=== PATIENT | male | born 1950 | race Caucasian/White ===

== ENCOUNTER 2016-10-23 00:48 | Emergency (ER) | payer MEDICAID ==
[2016-10-23] MEDS ORDERED: PROPARACAINE 0.5% OPHTH DROPS 15 ML ONE (00:56)
== END 2016-10-23 01:47 | disposition home or self-care (01) ==
DX: H57.12 Ocular pain, left eye (principal); G89.18 Other acute postprocedural pain; H35.30 Unspecified macular degeneration; I10 Essential (primary) hypertension; F17.200 Nicotine dependence, unspecified, uncomplicated
CPT/HCPCS: 99283; J3490

== ENCOUNTER 2017-02-14 09:27 | Outpatient (CLI) | payer MEDICAID | END 2017-02-14 09:28 | DX: Z79.899 Other long term (current) drug therapy (principal) ==

== ENCOUNTER 2018-07-21 12:47 | Emergency (ER) | payer MEDICAID, MEDICARE ==
[2018-07-21] MEDS ORDERED: ALBUTEROL NEB 2.5 MG/3 ML INH STA ×2 (13:29→14:43)
[2018-07-21] MEDS ORDERED: DEXAMETHASONE 10 MG/ML VIAL PO STA (13:29)
--- NOTE | 2018-07-21 13:33 | ED Physician Documentation ---
History of Present Illness - Stated complaint Stated Complaint: SOA - Chief complaint Chief Complaint: Resp - Additonal information Additional information: hx from pt 67 male smoker no hx COPD asthma sick since yesterday cough soa mylagias no NVD no leg swelling no travel or sick contacts Review of Systems Constitutional: reports: Myalgias. denies: Fever Cardiac: denies: Chest pain / pressure Respiratory: reports: Dyspnea, Cough GI: denies: Vomiting, Diarrhea Musculoskeletal: denies: Extremity swelling Endocrine: denies: Easy bruising / bleeding Immunocompromised: denies: Immunocompromised PD PAST MEDICAL HISTORY - Past Medical History Past Medical History: No Cardiovascular: Hypertension Respiratory: Pneumonia Neuro: None Endocrine/Autoimmune: None GI: None : None HEENT: None Psych: Depression, Anxiety, Post traumatic stress disorder Musculoskeletal: None Derm: None - Past Surgical History Past Surgical History: Yes - Present Medications Home Medications: Ambulatory Orders Medication Instructions Recorded Confirmed Lisinopril 10 mg PO HS 10/13/13 06/14/15 PARoxetine [Paxil] 40 mg PO HS 10/13/13 06/14/15 Prazosin [Minipress] 1 mg PO DAILY 10/13/13 06/14/15 Propranolol ER [Inderal LA] 80 mg PO HS 10/13/13 06/14/15 traZODone [Desyrel] 100 mg PO HS 10/13/13 06/14/15 Albuterol Sulfate [Proair Hfa 2 puffs INH Q4H PRN #1 inhaler 07/21/18 Inhaler] Azithromycin [Zithromax] 250 mg PO DAILY #4 tablet 07/21/18 predniSONE [Deltasone] 60 mg PO DAILY 5 Days tablet 07/21/18 - Allergies Allergies/Adverse Reactions: Allergies Allergy/AdvReac Type Severity Reaction Status Date / Time No Known Drug Allergies Allergy Unverified 10/13/13 12:13 - Social History Does the pt smoke?: Yes Smoking Status: Current every day smoker Does the pt drink ETOH?: No Does the pt have substance abuse?: No - Immunizations Immunizations are current?: Yes - POLST Patient has POLST: No PD ED PE NORMAL - Vitals Vital signs reviewed: Yes - Neck Neck: Supple, no meningeal sign - Cardiac Cardiac: RRR - Respiratory Respiratory: No respiratory distress, Other (wheezing gregorio, ronchi L). No: Clear bilaterally - Extremities Extremities: No tenderness to palpate, Normal ROM s pain, No edema, No calf tenderness / cord - Neuro Neuro: Alert and oriented X 3 Results - Vitals Vitals: Vital Signs - 24 hr 07/21/18 13:08 Temperature 36.7 C Heart Rate 63 Respiratory 20 Rate Blood Pressure 146/82 H O2 Saturation 92 Oxygen O2 Source Room air - Rads (name of study) CXR Radiology: See rad report ([facility]) PD MEDICAL DECISION MAKING - ED course ED course: after steroids and neb tx much better, moving air, sats improved no pna neg influenza but older smoker with bronchitis - will rx zmax - Sepsis Event Vital Signs: Vital Signs - 24 hr 07/21/18 13:08 Temperature 36.7 C Heart Rate 63 Respiratory 20 Rate Blood Pressure 146/82 H O2 Saturation 92 Oxygen O2 Source Room air Departure - Departure Disposition: 01 Home, Self Care Clinical Impression: Bronchitis, Wheezing Condition: Good Instructions: Bronchitis Acute Dc, Inhaler W Spacer Follow-Up: Pratibha Galo ARNP [Primary Care Provider] - (for a recheck this week ) Prescriptions: Albuterol Sulfate [Proair Hfa Inhaler] 2 puffs INH Q4H PRN #1 inhaler PRN Reason: Shortness Of Air/Wheezing Azithromycin [Zithromax] 250 mg PO DAILY #4 tablet predniSONE [Deltasone] 60 mg PO DAILY 5 Days tablet Comments: The xray does not show pneumonia and the flu swabs were negative You have bronchitis Bronchitis is often viral but because you are a smoker your are more prone to bacterial infections so we have started you on zithromax (next dose tomorrow) Also steroids to decrease airway swelling (next dose tomorrow) And an inhaler to be used every 4 hr for the next three days then as needed (next dose 7 PM) Follow up with your regular doctor But return to the ER if worse
--- NOTE | 2018-07-21 14:26 | XRAY Report ---
Reason: diff breathing Procedure Date: 07/21/2018 Accession Number: [id number] / [id number] Procedure: XR - Chest 2 View X-Ray CPT Code: 46968 FULL RESULT: EXAM: CHEST RADIOGRAPHY EXAM DATE: 07/21/2018 02:11 PM. CLINICAL HISTORY: Difficulty breathing. COMPARISON: None. TECHNIQUE: 2 views. FINDINGS: Lungs/Pleura: No focal opacities evident. No pleural effusion. No pneumothorax. Normal volumes. Mediastinum: Heart and mediastinal contours are unremarkable. Other: None. IMPRESSION: Normal 2-view chest radiography. RADIA
[2018-07-21] MEDS ORDERED: AZITHROMYCIN 250 MG TABLET PO STA (14:43)
[2018-07-21 15:58] VITALS: BP 130/85
== END 2018-07-21 15:59 | disposition home or self-care (01) ==
LOC: ED 12:47
DX: J40 Bronchitis, not specified as acute or chronic (principal); F17.200 Nicotine dependence, unspecified, uncomplicated; I10 Essential (primary) hypertension
CPT/HCPCS: 71046; 87275; 87276; 94640; 94664; 99283; A9270

== ENCOUNTER 2018-08-12 15:52 | Emergency (ER) | payer MEDICARE ==
[2018-08-12 16:02] VITALS: BP 156/125
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
[2018-08-12] MEDS ORDERED: ACETAMINOPHEN 325 MG TABLET PO STA (17:11)
[2018-08-12] MEDS ORDERED: NAPROXEN 250 MG TABLET PO STA (17:11)
[2018-08-12] MEDS ORDERED: METHOCARBAMOL 500 MG TABLET PO STA (17:11)
== END 2018-08-12 17:26 | disposition home or self-care (01) ==
LOC: ED 15:52
DX: I10 Essential (primary) hypertension (principal); F17.200 Nicotine dependence, unspecified, uncomplicated; S16.1XXA Strain of muscle, fascia and tendon at neck level, initial encounter; Y08.89XA Assault by other specified means, initial encounter; Y93.89 Activity, other specified
CPT/HCPCS: 99283; A9270

== ENCOUNTER 2018-10-20 08:00 | Outpatient (CLI) | payer MEDICARE ==
[2018-10-20 14:11] LABS: BASOPHILS # (AUTO) 0.1 10^3/uL (0.0-0.1); BASOPHILS % (AUTO) 1.5 %; EOSINOPHILS # (AUTO) 0.4 10^3/uL (0.0-0.7); EOSINOPHILS % (AUTO) 4.8 %; HGB - HEMOGLOBIN 14.2 g/dL (14.0-18.0); LYMPHOCYTES # (AUTO) 2.3 10^3/uL (1.5-3.5); LYMPHOCYTES % (AUTO) 29.4 %; MEAN CORPUSCULAR HEMOGLOBIN 33.1 pg (27.0-31.0); MEAN CORPUSCULAR HGB CONC 34.2 g/dL (32.0-36.0); MEAN CORPUSCULAR VOLUME 96.8 fL (80.0-94.0); MEAN PLATELET VOLUME 8.9 fL (7.4-11.4); MONOCYTES # (AUTO) 0.6 10^3/uL (0.0-1.0); MONOCYTES % (AUTO) 7.6 %; NEUTROPHILS # (AUTO) 4.5 10^3/uL (1.5-6.6); NEUTROPHILS % (AUTO) 56.7 %; PLT - PLATELET COUNT 302 10^3/uL (130-450); RED BLOOD COUNT 4.28 10^6/uL (4.70-6.10); RED CELL DISTRIBUTION WIDTH 13.8 % (12.0-15.0); WHITE BLOOD COUNT 7.9 x10^3/uL (4.8-10.8)
[2018-10-20 14:30] LABS: ALBUMIN 4.3 g/dL (3.2-5.5); ALBUMIN/GLOBULIN RATIO 1.8 (1.0-2.2); ALKALINE PHOSPHATASE 53 IU/L (42-121); ALT ALANINE AMINOTRANSFERASE 36 IU/L (10-60); AST ASPARTATE AMINOTRANSFERASE 20 IU/L (10-42); BILIRUBIN,TOTAL 0.6 mg/dL (0.2-1.0); BUN - BLOOD UREA NITROGEN 9 mg/dL (6-20); CALCIUM 9.3 mg/dL (8.5-10.3); CARBON DIOXIDE - CO2 27 mmol/L (21-32); CHLORIDE 104 mmol/L (101-111); CHOL/HDL RATIO 4.8 (<5.0); CHOLESTEROL 258 mg/dL; CREATININE 0.9 mg/dL (0.6-1.2); GFR - MDRD 84 (>89); GLUCOSE 97 mg/dL (70-100); HDL CHOLESTEROL 54 mg/dL; LDL CHOLESTEROL,CALCULATED 175 mg/dL; LDL/HDL RATIO 3.2 (<3.6); SODIUM 138 mmol/L (135-145); TOTAL PROTEIN 6.7 g/dL (6.7-8.2); VLDL CHOLESTEROL 29 mg/dL
== END 2018-10-20 23:59 | disposition home or self-care (01) ==
LOC: LAB.N 08:00
PROVIDERS: ATTEND Nurse Practitioner Gerontology
DX: I10 Essential (primary) hypertension (principal); E78.5 Hyperlipidemia, unspecified; Z79.899 Other long term (current) drug therapy
CPT/HCPCS: 36415; 80053; 80061; 83721; 85025

== ENCOUNTER 2019-08-28 17:15 | Outpatient (CLI) | payer MEDICARE | END 2019-08-28 17:16 | disposition critical access hospital (66) | LOC: EMS 17:15 | PROVIDERS: ATTEND Surgery | DX: R45.89 Other symptoms and signs involving emotional state (principal) | CPT/HCPCS: A0425; A0429 ==

== ENCOUNTER 2019-08-28 17:37 | Emergency (ER) | payer MEDICARE ==
[2019-08-28 18:34] VITALS: BP 237/142
[2019-08-28] MEDS ORDERED: LORazepam 2 MG/ML VIAL IVP STA (18:43)
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
[2019-08-28] MEDS ORDERED: LORazepam 1 MG TABLET PO STA (18:47)
== END 2019-08-28 19:12 | disposition home or self-care (01) ==
LOC: EDUNIT# → ED 17:37
DX: F33.1 Major depressive disorder, recurrent, moderate (principal); F41.9 Anxiety disorder, unspecified; F43.10 Post-traumatic stress disorder, unspecified; I10 Essential (primary) hypertension; F17.200 Nicotine dependence, unspecified, uncomplicated
CPT/HCPCS: 99283; J8499

== ENCOUNTER 2019-09-23 23:26 | Emergency (ER) | payer MEDICARE ==
--- NOTE | 2019-09-24 | ED Physician Documentation ---
History of Present Illness - Stated complaint Stated Complaint: SOA/ANXIETY - Chief complaint Chief Complaint: MHE - Additonal information Additional information: This is a 69-year-old male with a history of depression, anxiety, COPD who pre sents with shortness of breath. Patient has had a cough productive of a small amount of clear to white sputum for Around 1 week, and this has increased over the last several days. He typically is prescribed an albuterol inhaler, but he ran out of this. He states that as his breathing has gotten a bit worse and this has increased his anxiety. He denies any chest pain, leg swelling, or fever. He denies any history of KS or cardiac problems. Review of Systems Constitutional: denies: Fever Nose: denies: Rhinorrhea / runny nose Cardiac: denies: Chest pain / pressure Respiratory: reports: Dyspnea, Cough PD PAST MEDICAL HISTORY - Past Medical History Cardiovascular: Hypertension Respiratory: Pneumonia Neuro: None Endocrine/Autoimmune: None GI: None : None HEENT: None Psych: Depression, Anxiety, Post traumatic stress disorder Musculoskeletal: None Derm: None - Past Surgical History Past Surgical History: Yes - Present Medications Home Medications: Ambulatory Orders Medication Instructions Recorded Confirmed Lisinopril 10 mg PO HS 10/13/13 06/14/15 PARoxetine [Paxil] 40 mg PO HS 10/13/13 06/14/15 Prazosin [Minipress] 1 mg PO DAILY 10/13/13 06/14/15 Propranolol ER [Inderal LA] 80 mg PO HS 10/13/13 06/14/15 traZODone [Desyrel] 100 mg PO HS 10/13/13 06/14/15 Albuterol Sulfate [Proair Hfa 2 puffs INH Q4H PRN #1 inhaler 07/21/18 Inhaler] Azithromycin [Zithromax] 250 mg PO DAILY #4 tablet 07/21/18 predniSONE [Deltasone] 60 mg PO DAILY 5 Days tablet 07/21/18 Methocarbamol [Robaxin] 500 mg PO Q6H PRN #25 tablet 08/12/18 Naproxen [Naprosyn] 500 mg PO BID PRN #20 tablet 08/12/18 Lorazepam [Ativan] 1 mg PO TID PRN #10 tablet 08/28/19 Albuterol Sulf [Ventolin Hfa 1 - 2 puffs INH Q4HR PRN #1 inhaler 09/24/19 Inhaler] Azithromycin [Zithromax] 0 mg PO DAILY #6 tablet 09/24/19 Benzonatate [Tessalon Perle] 100 - 200 mg PO TID PRN #30 capsule 09/24/19 predniSONE [Prednisone] 40 mg PO DAILY #10 tablet 09/24/19 - Allergies Allergies/Adverse Reactions: Allergies Allergy/AdvReac Type Severity Reaction Status Date / Time No Known Drug Allergies Allergy Verified 09/23/19 23:38 - Social History Does the pt smoke?: Yes Smoking Status: Current every day smoker Does the pt drink ETOH?: No Does the pt have substance abuse?: No - Immunizations Immunizations are current?: Yes - POLST Patient has POLST: No PD ED PE NORMAL - Vitals Vital signs reviewed: Yes - General General: Alert and oriented X 3, No acute distress - HEENT HEENT: PERRL - Neck Neck: Supple, no meningeal sign - Cardiac Cardiac: RRR, No murmur - Respiratory Respiratory: Other (Diffuse expiratory wheezes, no crackles.) - Abdomen Abdomen: Soft, Non distended - Derm Derm: Warm and dry - Extremities Extremities: No deformity, No edema - Neuro Neuro: Alert and oriented X 3 - Psych Psych: Normal mood, Normal affect Results - Vitals Vitals: Vital Signs - 24 hr 09/23/19 09/24/19 09/24/19 23:38 00:29 00:53 Temperature 36.5 C Heart Rate 68 60 61 Respiratory 18 18 13 Rate Blood Pressure 200/100 H 179/112 H O2 Saturation 97 94 09/24/19 09/24/19 09/24/19 02:00 02:20 03:05 Temperature 37.2 C Heart Rate 65 61 68 Respiratory 16 18 16 Rate Blood Pressure 153/100 H 153/100 H 194/94 H O2 Saturation 97 95 96 Oxygen O2 Source Room air - EKG (time done) 00:15 Other comments: Other comments (Rate 62, rhythm sinus, there is no ST segment elevation Or depression. There is T wave flattening in aVL. Intervals within normal limits.) - Rads (name of study) Chest XR Radiology: Other (Hyperinflated lungs without acute cardiopulmonary abnormality) PD MEDICAL DECISION MAKING - ED course Complexity details: considered differential (COPD, pneumonia, bronchitis, pneumothorax, dysrhythmia, ACS, anxiety) ED course: On arrival patient is hypertensive, nontoxic-appearing, he does have some diffuse mild end-expiratory wheezes. Patient has no chest pain, and given the gradual progression of his shortness of breath as well as his his cough, ACS is unlikely, EKG shows no convincing signs of ischemia or dysrhythmia. Chest x-ray was obtained which shows hyperinflated lungs consistent with COPD, no signs of pneumonia or pneumothorax. Patient was given a dose of steroids, and a DuoNeb treatment. On repeat examination he is feeling improved, and his wheezing is also improved. He appears to have a COPD exacerbation likely the setting of an upper respiratory infection. Given that he has had change in sputum, we will treat with a steroid burst, azithromycin. I also prescribed him Tessalon Perles for cough. I recommend that he quit smoking, that he follow with his primary care provider closely. He was given 1 dose of lorazepam in the emergency department, but explained to him that I would not want to write a prescription for this, the given its addictive potential. I think there are much better medications to help him with his anxiety, and recommend a follow-up with his primary care provider regarding his anxiety. Patient agreed to this plan and was discharged in good condition Departure - Departure Disposition: 01 Home, Self Care Clinical Impression: COPD (chronic obstructive pulmonary disease) Qualifiers: COPD type: unspecified COPD Qualified Code(s): J44.9 - Chronic obstructive pulmonary disease, unspecified Condition: Good Instructions: ED COPD Flare Follow-Up: Shawn Scott MD [Primary Care Provider] - Within 1 week Prescriptions: Albuterol Sulf [Ventolin Hfa Inhaler] 1 - 2 puffs INH Q4HR PRN #1 inhaler PRN Reason: Shortness Of Air/Wheezing Azithromycin [Zithromax] 0 mg PO DAILY #6 tablet Benzonatate [Tessalon Perle] 100 - 200 mg PO TID PRN #30 capsule PRN Reason: Cough predniSONE [Prednisone] 40 mg PO DAILY #10 tablet Comments: You appear to have a COPD exacerbation. Please use the albuterol inhaler as needed, also take the steroid and antibiotic that I have prescribed. If you are having worsening symptoms such as pain in your chest, worsening shortness of breath or shortness of breath that does not respond to this treatment, coughing up blood, or any other concerning symptoms return to the emergency department. Please follow-up with your primary care provider in the next week to follow up on your symptoms. To help you with your breathing and to help preserve your lung function, please quit smoking. Discharge Date/Time: 09/24/19 03:11
[2019-09-24] MEDS: IPRATROPIUM/ALBUTEROL 3 ML NEB INH STA (00:29)
[2019-09-24] MEDS: predniSONE 20 MG TABLET PO STA (01:10)
--- NOTE | 2019-09-24 01:26 | XRAY Report ---
Reason: Cough, shortness of breath Procedure Date: 09/24/2019 Accession Number: [id number] / [id number] Procedure: XR - Chest 2 View X-Ray CPT Code: 97284 Final Report FULL RESULT: EXAM: CHEST RADIOGRAPHY EXAM DATE: 09/24/2019 01:06 AM. CLINICAL HISTORY: Cough, shortness of breath. COMPARISON: CHEST 2 VIEW 07/21/2018 2:01 PM. TECHNIQUE: 2 views. FINDINGS: Lungs/Pleura: The lungs are hyperinflated with relative flattening of the hemidiaphragms. No acute infiltrates. No pleural effusions. Mediastinum: Heart and mediastinal contours are unremarkable. Other: None. IMPRESSION: Hyperinflated lungs. No acute infiltrates. RADIA
[2019-09-24] MEDS: LORazepam 1 MG TABLET PO STA (02:29)
[2019-09-24 03:11] VITALS: BP 194/94
== END 2019-09-24 03:11 | disposition home or self-care (01) ==
LOC: ED 23:26
DX: J44.9 Chronic obstructive pulmonary disease, unspecified (principal); I10 Essential (primary) hypertension; F17.200 Nicotine dependence, unspecified, uncomplicated
CPT/HCPCS: 71046; 93005; 94640; 94664; 99284; J7512; J8499

== ENCOUNTER 2020-10-25 05:57 | Outpatient (CLI) | payer MEDICARE | END 2020-10-25 05:58 | disposition critical access hospital (66) | LOC: EMS 05:57 | PROVIDERS: ATTEND Surgery | DX: R45.851 Suicidal ideations (principal) | CPT/HCPCS: A0425; A0429 ==

== ENCOUNTER 2020-10-25 06:16 | Emergency (ER) | payer MEDICARE ==
[2020-10-25] MEDS ORDERED: LORazepam 1 MG TABLET PO STA (06:30)
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
[2020-10-25 06:43] LABS: BASOPHILS # (AUTO) 0.1 10^3/uL (0.0-0.1); BASOPHILS % (AUTO) 1.6 %; EOSINOPHILS # (AUTO) 0.4 10^3/uL (0.0-0.7); EOSINOPHILS % (AUTO) 4.4 %; HCT - HEMATOCRIT 46.9 % (42.0-52.0); HGB - HEMOGLOBIN 15.6 g/dL (14.0-18.0); LYMPHOCYTES # (AUTO) 2.4 10^3/uL (1.5-3.5); LYMPHOCYTES % (AUTO) 29.7 %; MEAN CORPUSCULAR HEMOGLOBIN 31.5 pg (27.0-31.0); MEAN CORPUSCULAR HGB CONC 33.3 g/dL (32.0-36.0); MEAN CORPUSCULAR VOLUME 94.7 fL (80.0-94.0); MEAN PLATELET VOLUME 9.9 fL (7.4-11.4); MONOCYTES # (AUTO) 0.6 10^3/uL (0.0-1.0); MONOCYTES % (AUTO) 7.9 %; NEUTROPHILS # (AUTO) 4.5 10^3/uL (1.5-6.6); NEUTROPHILS % (AUTO) 56.1 %; PLT - PLATELET COUNT 251 10^3/uL (130-450); RED BLOOD COUNT 4.95 10^6/uL (4.70-6.10); WHITE BLOOD COUNT 7.9 x10^3/uL (4.8-10.8)
[2020-10-25 06:57] LABS: ACETAMINOPHEN < 10 ug/mL (10-30); ALBUMIN 4.1 g/dL (3.2-5.5); ALBUMIN/GLOBULIN RATIO 1.5 (1.0-2.2); ALKALINE PHOSPHATASE 65 IU/L (42-121); ALT ALANINE AMINOTRANSFERASE 25 IU/L (10-60); AST ASPARTATE AMINOTRANSFERASE 18 IU/L (10-42); BILIRUBIN,TOTAL 0.8 mg/dL (0.2-1.0); BUN - BLOOD UREA NITROGEN 10 mg/dL (6-20); CALCIUM 9.2 mg/dL (8.5-10.3); CARBON DIOXIDE - CO2 27 mmol/L (21-32); CHLORIDE 106 mmol/L (101-111); CREATININE 1.2 mg/dL (0.6-1.2); ETOH - ETHANOL < 5.0 mg/dL; GFR - MDRD 60 (>89); GLUCOSE 125 mg/dL (70-100); LIPASE 34 U/L (22-51); POTASSIUM 3.7 mmol/L (3.5-5.0); SALICYLATE < 6.0 mg/dL; SODIUM 141 mmol/L (135-145); TOTAL PROTEIN 6.8 g/dL (6.7-8.2)
[2020-10-25 08:04] LABS: MUDS CUTOFF CONCENTRATIONS CUTOFF CONC BELOW:
[2020-10-25 08:07] LABS: BILIRUBIN,URINE NEGATIVE (NEGATIVE); GLUCOSE, URINE (UA) NEGATIVE (NEGATIVE); KETONES,URINE (UA) NEGATIVE (NEGATIVE); LEUKOCYTE ESTERASE, URINE NEGATIVE (NEGATIVE); NITRITE,URINE NEGATIVE (NEGATIVE); OCCULT BLOOD,URINE NEGATIVE (NEGATIVE); PROTEIN,URINE NEGATIVE (NEGATIVE); UROBILINOGEN,URINE 0.2 (NORMAL) E.U./dL (NORMAL)
[2020-10-25 08:08] LABS: CLARITY,URINE CLEAR (CLEAR)
[2020-10-25 08:22] LABS: AMPHETAMINE SCREEN,URINE NEGATIVE (NEGATIVE); BARBITURATE SCREEN,UR NEGATIVE (NEGATIVE); BENZODIAZEPINES SCREEN, URINE NEGATIVE (NEGATIVE); COCAINE SCREEN URINE NEGATIVE (NEGATIVE); METHADONE SCREEN, URINE NEGATIVE (NEGATIVE); METHAMPHETAMINES SCREEN, URINE NEGATIVE (NEGATIVE); OPIATE SCREEN, URINE NEGATIVE (NEGATIVE); OXYCODONE SCREEN, URINE NEGATIVE (NEGATIVE); PROPOXYPHENE SCREEN, URINE NEGATIVE (NEGATIVE); THC CANNABINOID SCREEN, URINE NEGATIVE (NEGATIVE); TRICYCLIC ANTIDEPRESSANT,URINE NEGATIVE (NEGATIVE)
[2020-10-25 08:51] LABS: B. PARAPERTUSSIS- RESP PCR PAN NOT DETECTED; B. PERTUSSIS- RESP PCR PANEL NOT DETECTED; C. PNEUMONIAE- RESP PCR PANEL NOT DETECTED; CORONAVIRUS 229E-RESP PCR NOT DETECTED; CORONAVIRUS HKU1-RESP PCR NOT DETECTED; CORONAVIRUS NL63-RESP PCR NOT DETECTED; CORONAVIRUS OC43-RESP PCR NOT DETECTED; HUMAN METAPNEUMOVIRUS NOT DETECTED; INFLUENZA A- RESP PCR PANEL NOT DETECTED; INFLUENZA B - RESP PCR PANEL NOT DETECTED; M. PNEUMONIAE- RESP PCR PANEL NOT DETECTED; PARAINFLUENZA VIRUS 1 NOT DETECTED; PARAINFLUENZA VIRUS 2 NOT DETECTED; PARAINFLUENZA VIRUS 3 NOT DETECTED; PARAINFLUENZA VIRUS 4 NOT DETECTED; RHINOVIRUS/ENTEROVIRUS NOT DETECTED; RSV- RESP PCR PANEL NOT DETECTED; SARS-CoV-2 -RESP PCR PANEL NOT DETECTED
[2020-10-25] MEDS ORDERED: NICOTINE 21 MG PATCH TOP STA (11:28)
[2020-10-25 12:33] VITALS: BP 171/97
== END 2020-10-25 12:49 | disposition home or self-care (01) ==
LOC: EDBD → EDUNIT# → ED 06:16
DX: R45.851 Suicidal ideations (principal); F32.9 Major depressive disorder, single episode, unspecified; F17.200 Nicotine dependence, unspecified, uncomplicated; Z20.822 Contact with and (suspected) exposure to COVID-19
CPT/HCPCS: 36415; 80053; 81003; 83690; 84443; 85025; 87631; 99283; 99284; A9270; J8499; 0202U; 80306; 80307; 80320; 80329; 81001; 87086

== ENCOUNTER 2021-01-20 01:57 | Outpatient (CLI) | payer MEDICARE, MEDICAID | END 2021-01-20 01:58 | disposition critical access hospital (66) | LOC: EMS 01:57 | DX: R45.851 Suicidal ideations (principal) | CPT/HCPCS: A0425; A0429 ==

== ENCOUNTER 2021-01-20 02:17 | Emergency (ER) | payer MEDICARE, MEDICAID ==
--- NOTE | 2021-01-20 02:52 | ED Physician Documentation ---
History of Present Illness - Stated complaint Stated Complaint: MHE, SI - Chief complaint Chief Complaint: MHE - History obtained from History obtained from: Patient - Additonal information Additional information: Patient comes emergency department chief complaint of "I just do not see any reason to go on". Patient has a longstanding history of depression and has previously had inpatient stays for suicidal attempt with pills, though he does note that this was about 8 years ago. He states that his most recent trigger is that he feels as though his health is failing. He had an episode 1 week ago where he cannot remember the names of any of the members of the group that he has been part of for years. He states that he knows the members well and while he seemed to be able to remember everything else he could not remember anybody's name. Patient states when he got home, he cannot remember his pets names. Patient states that he did not have any focal neurologic deficits otherwise. He states the symptoms began to improve about 3 days later. Patient states that the other and most prominent trigger is the loss of his eyesight. Patient states he had a retinal hemorrhage and has been getting some sort of intraocular injection at the eye clinic for this. This would improve his vision, but he feels that actually, his vision has gotten even worse. Patient denies recent illness. He states he took his Ativan as directed tonight, but did not Take any other medication. He states that although he has felt suicidal, and knows how he would commit suicide if he were to do so, he has not actually attempted suicide anytime recently. He is currently on bupropion, trazodone, and Ativan as needed. He is seen occasionally at the behavioral health clinic [facility]. Review of Systems Ten Systems: 10 systems reviewed and negative Constitutional: reports: Reviewed and negative Eyes: reports: Reviewed and negative Ears: reports: Reviewed and negative Nose: reports: Reviewed and negative Throat: reports: Reviewed and negative Cardiac: reports: Reviewed and negative Respiratory: reports: Reviewed and negative GI: reports: Reviewed and negative : reports: Reviewed and negative Skin: reports: Reviewed and negative Musculoskeletal: reports: Reviewed and negative Neurologic: reports: Reviewed and negative Psychiatric: reports: Depressed, Suicidal. denies: Hallucinations, Delusions Endocrine: reports: Reviewed and negative Immunocompromised: reports: Reviewed and negative PD PAST MEDICAL HISTORY - Past Medical History Past Medical History: Yes Cardiovascular: Hypertension Respiratory: Pneumonia Neuro: None Endocrine/Autoimmune: None GI: None : None HEENT: None Psych: Depression, Anxiety, Post traumatic stress disorder Musculoskeletal: None Derm: None - Past Surgical History Past Surgical History: Yes - Present Medications Home Medications: Ambulatory Orders Medication Instructions Recorded Confirmed Propranolol ER [Inderal LA] 80 mg PO HS 10/13/13 01/20/21 traZODone [Desyrel] 100 mg PO HS 10/13/13 01/20/21 Lorazepam [Ativan] 1 mg PO TID PRN #10 tablet 08/28/19 01/20/21 Atorvastatin [Lipitor] 10 mg PO DAILY 10/25/20 01/20/21 Tamsulosin [Flomax] 0.4 mg PO DAILY 10/25/20 01/20/21 buPROPion [Wellbutrin Xl] 150 mg PO BID 01/20/21 01/20/21 - Allergies Allergies/Adverse Reactions: Allergies Allergy/AdvReac Type Severity Reaction Status Date / Time No Known Drug Allergies Allergy Verified 10/25/20 12:01 - Social History Does the pt smoke?: Yes Smoking Status: Current every day smoker Does the pt drink ETOH?: No Does the pt have substance abuse?: No - Immunizations Immunizations are current?: Yes - POLST Patient has POLST: No PD ED PE NORMAL - Vitals Vital signs reviewed: Yes - General General: Alert and oriented X 3, No acute distress, Well developed/nourished - HEENT HEENT: Atraumatic, PERRL, EOMI, Moist mucous membranes - Neck Neck: Supple, no meningeal sign - Cardiac Cardiac: RRR, No murmur, Strong equal pulses - Respiratory Respiratory: No respiratory distress, Clear bilaterally - Abdomen Abdomen: Soft, Non tender, Non distended - Derm Derm: Normal color, Warm and dry, No rash - Extremities Extremities: No deformity, No edema, No calf tenderness / cord - Neuro Neuro: Alert and oriented X 3 - Psych Psych: Normal mood, Normal affect Results - Vitals Vitals: Oxygen O2 Source Room air - Labs Labs: Laboratory Tests 01/20/21 01/20/21 01/20/21 03:00 03:00 03:00 WBC 8.2 RBC 4.66 L Hgb 14.8 Hct 43.9 MCV 94.2 H MCH 31.8 H MCHC 33.7 RDW 12.5 Plt Count 245 MPV 9.9 Neut # (Auto) 4.4 Lymph # (Auto) 2.4 Lyon # (Auto) 0.8 Eos # (Auto) 0.5 Baso # (Auto) 0.1 Absolute Nucleated RBC 0.00 Nucleated RBC % 0.0 Sodium 140 Potassium 3.9 Chloride 108 Carbon Dioxide 25 Anion Gap 7.0 BUN 19 Creatinine 1.2 Estimated GFR (MDRD) 60 L Glucose 108 H Calcium 8.8 Total Bilirubin 0.5 AST 19 ALT 21 Alkaline Phosphatase 60 Total Protein 6.5 L Albumin 3.9 Globulin 2.6 Albumin/Globulin Ratio 1.5 Lipase 60 H Urine Color Urine Clarity Urine pH Ur Specific [place] Urine Protein Urine Glucose (UA) Urine Ketones Urine Occult Blood Urine Nitrite Urine Bilirubin Urine Urobilinogen Ur Leukocyte Esterase Ur Microscopic Review Urine Culture Comments Nasal Adenovirus (PCR) NOT DETECTED Nasal B. parapertussis DNA (PCR) NOT DETECTED Nasal Coronavir 229E PCR NOT DETECTED Nasal Coronavir HKU1 PCR NOT DETECTED Nasal Coronavir NL63 PCR NOT DETECTED Nasal Coronavir OC43 PCR NOT DETECTED Nasal Enterovir/Rhinovir PCR NOT DETECTED Nasal Influenza B PCR NOT DETECTED Nasal Influenza A PCR NOT DETECTED Nasal Parainfluen 1 PCR NOT DETECTED Nasal Parainfluen 2 PCR NOT DETECTED Nasal Parainfluen 3 PCR NOT DETECTED Nasal Parainfluen 4 PCR NOT DETECTED Nasal RSV (PCR) NOT DETECTED Nasal B.pertussis DNA PCR NOT DETECTED Nasal C.pneumoniae (PCR) NOT DETECTED Nakul Human Metapneumo PCR NOT DETECTED Nasal M.pneumoniae (PCR) NOT DETECTED Nasal SARS-CoV-2 (PCR) NOT DETECTED Urine Opiates Screen Ur Oxycodone Screen Urine Methadone Screen Ur Propoxyphene Screen Ur Barbiturates Screen Ur Tricyclics Screen Ur Phencyclidine Scrn Ur Amphetamine Screen U Methamphetamines Scrn U Benzodiazepines Scrn Urine Cocaine Screen U Cannabinoids Screen Ethyl Alcohol < 5.0 01/20/21 04:45 WBC RBC Hgb Hct MCV MCH MCHC RDW Plt Count MPV Neut # (Auto) Lymph # (Auto) Lyon # (Auto) Eos # (Auto) Baso # (Auto) Absolute Nucleated RBC Nucleated RBC % Sodium Potassium Chloride Carbon Dioxide Anion Gap BUN Creatinine Estimated GFR (MDRD) Glucose Calcium Total Bilirubin AST ALT Alkaline Phosphatase Total Protein Albumin Globulin Albumin/Globulin Ratio Lipase Urine Color YELLOW Urine Clarity CLEAR Urine pH 6.0 Ur Specific [place] 1.020 Urine Protein NEGATIVE Urine Glucose (UA) NEGATIVE Urine Ketones NEGATIVE Urine Occult Blood NEGATIVE Urine Nitrite NEGATIVE Urine Bilirubin NEGATIVE Urine Urobilinogen 0.2 (NORMAL) Ur Leukocyte Esterase NEGATIVE Ur Microscopic Review NOT INDICATED Urine Culture Comments NOT INDICATED Nasal Adenovirus (PCR) Nasal B. parapertussis DNA (PCR) Nasal Coronavir 229E PCR Nasal Coronavir HKU1 PCR Nasal Coronavir NL63 PCR Nasal Coronavir OC43 PCR Nasal Enterovir/Rhinovir PCR Nasal Influenza B PCR Nasal Influenza A PCR Nasal Parainfluen 1 PCR Nasal Parainfluen 2 PCR Nasal Parainfluen 3 PCR Nasal Parainfluen 4 PCR Nasal RSV (PCR) Nasal B.pertussis DNA PCR Nasal C.pneumoniae (PCR) Nakul Human Metapneumo PCR Nasal M.pneumoniae (PCR) Nasal SARS-CoV-2 (PCR) Urine Opiates Screen NEGATIVE Ur Oxycodone Screen NEGATIVE Urine Methadone Screen NEGATIVE Ur Propoxyphene Screen NEGATIVE Ur Barbiturates Screen NEGATIVE Ur Tricyclics Screen NEGATIVE Ur Phencyclidine Scrn NEGATIVE Ur Amphetamine Screen NEGATIVE U Methamphetamines Scrn NEGATIVE U Benzodiazepines Scrn POSITIVE H Urine Cocaine Screen NEGATIVE U Cannabinoids Screen NEGATIVE Ethyl Alcohol PD MEDICAL DECISION MAKING - ED course Complexity details: reviewed old records, reviewed results, re-evaluated patient, considered differential, d/w patient ED course: The patient was worked up with laboratory studies in preparation for mental health evaluation. He seemed to be here on a voluntary basis and was willing to stay. The patient had expressed suicidal ideation, but had not attempted suicide; I felt the he would benefit from speaking with manager social media. At change of shift, the patient was signed out to Dr. Cordero, pending arrival of manager social media, mental health evaluation, and final disposition. Departure - Departure Disposition: [facility] Hosp/Unit DC/Xfer Clinical Impression: Depressive disorder, Suicidal ideation Discharge Date/Time: 01/20/21 15:17
--- OUTSIDE RECORDS SUMMARY | 2021-01-20 02:56 | EXTERNAL MEDICAL SUMMARY RPT | Continuity of Care Document ---
:1950 Demographics Phone Unavailable Preferred Language Marshallese Marital Status Unknown Sabianism Affiliation Unknown Race Unknown Ethnic Group Unknown Author Organization [place] Address [address] [phone] Phone Care Team Providers Name Role Phone Jesse Ayala Unavailable Unavailable Princess Bhandari Unavailable Unavailable Jesse Ayala Unavailable Unavailable Problems date description facility 20210110 Hyperlipidemia, unspecified [facility] 20210110 Panic disorder [episodic paroxysmal anx iety] [facility] Medications date description facility 20201027 Lorazepam 0.5 MG Oral Tablet [facility] 20201027 Trazodone Hydrochloride 50 MG Oral [facility] [id number] 12 HR Bupropion Hydrochloride 150 MG Ex tended [facility] Tablet [id number] Lorazepam 0.5 MG Oral Tablet [facility] [id number] Trazodone Hydrochloride 50 MG Oral [facility] [id number] 12 HR Bupropion Hydrochloride 150 MG Ex tended [facility] Tablet [id number] Lorazepam 0.5 MG Oral Tablet [facility] 21288841 Trazodone Hydrochloride 50 MG Oral [facility] [id number] 12 HR Bupropion Hydrochloride 150 MG Ex tended [facility] Tablet [id number] atorvastatin [address] [facility] 13091503 Tamsulosin hydrochloride 0.4 MG Oral [facility] 20201214 atorvastatin 20 MG Oral [facility] 20201214 Tamsulosin hydrochloride 0.4 MG Oral [facility] [id number] Lorazepam 0.5 MG Oral Tablet [facility] Procedures date description facility 20201212 [facility] date description facility 20201212 [facility] date description facility 20201214 [facility] date description facility 20201214 [facility] date description facility [id number] [facility] Vital Signs date measurement value source 20201214 BMI 34.0 kg/m2 20201214 BP_diastolic 74 mm[Hg] 20201214 BP_systolic 134 mm[Hg] 20201214 heart_rate 58 /min 20201214 height_metric 180.34 cm 20201214 height_standard 71 in 20201214 respiration_rate 16 /min 20201214 temperature_metric 36.44 C 20201214 temperature_standard 97.6 F 20201214 weight_metric 110.87 kg 20201214 weight_standard 244.43 lb 20201214 BMI 34.0 kg/m2 20201214 BP_diastolic 74 mm[Hg] 20201214 BP_systolic 134 mm[Hg] 20201214 heart_rate 58 /min 20201214 height_metric 180.34 cm 20201214 height_standard 71 in 20201214 respiration_rate 16 /min 20201214 temperature_metric 36.44 C 20201214 temperature_standard 97.6 F 20201214 weight_metric 110.87 kg 20201214 weight_standard 244.43 lb Social History date description facility [id number]
[2021-01-20 03:03] LABS: BASOPHILS # (AUTO) 0.1 10^3/uL (0.0-0.1); BASOPHILS % (AUTO) 1.6 %; EOSINOPHILS # (AUTO) 0.5 10^3/uL (0.0-0.7); EOSINOPHILS % (AUTO) 5.7 %; HCT - HEMATOCRIT 43.9 % (42.0-52.0); HGB - HEMOGLOBIN 14.8 g/dL (14.0-18.0); LYMPHOCYTES # (AUTO) 2.4 10^3/uL (1.5-3.5); LYMPHOCYTES % (AUTO) 29.6 %; MEAN CORPUSCULAR HEMOGLOBIN 31.8 pg (27.0-31.0); MEAN CORPUSCULAR HGB CONC 33.7 g/dL (32.0-36.0); MEAN CORPUSCULAR VOLUME 94.2 fL (80.0-94.0); MEAN PLATELET VOLUME 9.9 fL (7.4-11.4); MONOCYTES # (AUTO) 0.8 10^3/uL (0.0-1.0); MONOCYTES % (AUTO) 9.5 %; NEUTROPHILS # (AUTO) 4.4 10^3/uL (1.5-6.6); NEUTROPHILS % (AUTO) 53.4 %; PLT - PLATELET COUNT 245 10^3/uL (130-450); RED BLOOD COUNT 4.66 10^6/uL (4.70-6.10); RED CELL DISTRIBUTION WIDTH 12.5 % (12.0-15.0); WHITE BLOOD COUNT 8.2 x10^3/uL (4.8-10.8)
[2021-01-20 03:17] LABS: ALBUMIN 3.9 g/dL (3.2-5.5); ALBUMIN/GLOBULIN RATIO 1.5 (1.0-2.2); ALKALINE PHOSPHATASE 60 IU/L (42-121); ALT ALANINE AMINOTRANSFERASE 21 IU/L (10-60); AST ASPARTATE AMINOTRANSFERASE 19 IU/L (10-42); BILIRUBIN,TOTAL 0.5 mg/dL (0.2-1.0); BUN - BLOOD UREA NITROGEN 19 mg/dL (6-20); CALCIUM 8.8 mg/dL (8.5-10.3); CARBON DIOXIDE - CO2 25 mmol/L (21-32); CHLORIDE 108 mmol/L (101-111); CREATININE 1.2 mg/dL (0.6-1.2); ETOH - ETHANOL < 5.0 mg/dL; GFR - MDRD 60 (>89); GLUCOSE 108 mg/dL (70-100); LIPASE 60 U/L (22-51); POTASSIUM 3.9 mmol/L (3.5-5.0); SODIUM 140 mmol/L (135-145); TOTAL PROTEIN 6.5 g/dL (6.7-8.2)
[2021-01-20 03:50] LABS: B. PARAPERTUSSIS- RESP PCR PAN NOT DETECTED; B. PERTUSSIS- RESP PCR PANEL NOT DETECTED; C. PNEUMONIAE- RESP PCR PANEL NOT DETECTED; CORONAVIRUS 229E-RESP PCR NOT DETECTED; CORONAVIRUS HKU1-RESP PCR NOT DETECTED; CORONAVIRUS NL63-RESP PCR NOT DETECTED; CORONAVIRUS OC43-RESP PCR NOT DETECTED; HUMAN METAPNEUMOVIRUS NOT DETECTED; INFLUENZA A- RESP PCR PANEL NOT DETECTED; INFLUENZA B - RESP PCR PANEL NOT DETECTED; M. PNEUMONIAE- RESP PCR PANEL NOT DETECTED; PARAINFLUENZA VIRUS 1 NOT DETECTED; PARAINFLUENZA VIRUS 2 NOT DETECTED; PARAINFLUENZA VIRUS 3 NOT DETECTED; PARAINFLUENZA VIRUS 4 NOT DETECTED; RHINOVIRUS/ENTEROVIRUS NOT DETECTED; RSV- RESP PCR PANEL NOT DETECTED; SARS-CoV-2 -RESP PCR PANEL NOT DETECTED
[2021-01-20 04:51] LABS: MUDS CUTOFF CONCENTRATIONS CUTOFF CONC BELOW:
[2021-01-20 04:53] LABS: BILIRUBIN,URINE NEGATIVE (NEGATIVE); GLUCOSE, URINE (UA) NEGATIVE (NEGATIVE); KETONES,URINE (UA) NEGATIVE (NEGATIVE); LEUKOCYTE ESTERASE, URINE NEGATIVE (NEGATIVE); NITRITE,URINE NEGATIVE (NEGATIVE); OCCULT BLOOD,URINE NEGATIVE (NEGATIVE); PROTEIN,URINE NEGATIVE (NEGATIVE); UROBILINOGEN,URINE 0.2 (NORMAL) E.U./dL (NORMAL)
[2021-01-20 04:54] LABS: CLARITY,URINE CLEAR (CLEAR)
[2021-01-20 05:03] LABS: AMPHETAMINE SCREEN,URINE NEGATIVE (NEGATIVE); BARBITURATE SCREEN,UR NEGATIVE (NEGATIVE); BENZODIAZEPINES SCREEN, URINE POSITIVE (NEGATIVE); COCAINE SCREEN URINE NEGATIVE (NEGATIVE); METHADONE SCREEN, URINE NEGATIVE (NEGATIVE); METHAMPHETAMINES SCREEN, URINE NEGATIVE (NEGATIVE); OPIATE SCREEN, URINE NEGATIVE (NEGATIVE); OXYCODONE SCREEN, URINE NEGATIVE (NEGATIVE); PROPOXYPHENE SCREEN, URINE NEGATIVE (NEGATIVE); THC CANNABINOID SCREEN, URINE NEGATIVE (NEGATIVE); TRICYCLIC ANTIDEPRESSANT,URINE NEGATIVE (NEGATIVE)
[2021-01-20] MEDS ORDERED: NICOTINE 14 MG PATCH TOP STA (10:28)
[2021-01-20] MEDS ORDERED: LORazepam 1 MG TABLET PO STA (10:39)
--- NOTE | 2021-01-20 11:50 | ED Physician Documentation ---
ED Addendum - Addendum Addendum: 01/20/21 11:47 Screening electrocardiogram done at 1141 shows a sinus rhythm with a rate of 62 and some nonspecific lateral lead T wave flattening.The QT C is normal at 430. [facility] 09-24-2020 no sig changes 01/20/21 11:49 patient has been evaluated by social work assistant Niki and is voluntary bed placement is being evaluated.
[2021-01-20 13:47] VITALS: BP 172/103
== END 2021-01-20 15:17 ==
LOC: EDUNIT# → ED 02:17
DX: F32.9 Major depressive disorder, single episode, unspecified (principal); R45.851 Suicidal ideations; R41.3 Other amnesia; I10 Essential (primary) hypertension; F17.200 Nicotine dependence, unspecified, uncomplicated; Z20.822 Contact with and (suspected) exposure to COVID-19
CPT/HCPCS: 36415; 80053; 80306; 81003; 83690; 85025; 87631; 93005; 99283; 99285; A9270; G0480; J8499; 0202U; 80320; 81001; 87086

== ENCOUNTER 2022-05-04 13:22 | Outpatient (CLI) | payer MEDICAID, MEDICARE ==
--- NOTE | 2022-05-04 16:41 | CT Report ---
PROCEDURE: Low Dose Lung Cancer Screen INDICATIONS: HIST OF SMOKING TECHNIQUE: Noncontrast low-dose axial images were acquired from the pulmonary apices to the posterior costophren ic angles. Multiplanar MIP reformats were then reconstructed. For radiation dose reduction, the follo wing was used: automated exposure control, adjustment of mA and/or kV according to patient size. COMPARISON: None. FINDINGS: Image quality: Excellent. Lungs and pleura: No discrete pulmonary nodule is seen. Scattered scarring/atelectasis in periphery of bilateral lung tejeda are seen. No focal infiltrate, pleural effusion or pneumothorax. Central and peripheral airway is patent and are normal in size. Mediastinum: Heart size is normal. No pericardial effusion. No mediastinal adenopathy by size crit eria. Thoracic aorta and central pulmonary arteries are normal in size. Esophagus is normal in stephanie tonia. No hiatal hernia. Bones and chest wall: No suspicious bony lesions. No vertebral body compression fractures. No axil sandra or supraclavicular adenopathy by size criteria. The thyroid is normal in size and there are no incidental findings. Abdomen: Visualized upper abdomen solid organs and bowel loops appear normal in the absence of contr ast. IMPRESSION: 1. No discrete pulmonary nodule is seen. Scattered scarring/atelectasis in bilateral lung tejeda. No focal infiltrate, pleural effusion or pneumothorax. Lung RADS category: 1, annual digital screening CT chest follow-up is recommended as long as patient meets the criteria. CLINICAL RECOMMENDATION STATEMENTS: In patients <35 years with an ITN detected on CT, MRI, or extrathyroidal ultrasound, the Committee re commends further evaluation with dedicated thyroid ultrasound if the nodule is "e1 cm and has no susp icious imaging features, and if the patient has normal life expectancy. In patients "e35 years with an ITN detected on CT, MRI, or extrathyroidal ultrasound, the Committee r ecommends further evaluation with dedicated thyroid ultrasound if the nodule is "e1.5 cm and has no s uspicious imaging features, and if the patient has normal life expectancy. (ACR, 2014) Reviewed by: Osman Vo MD on 05/04/2022 4:40 PM PDT Approved by: Osman Vo MD on 05/04/2022 4:40 PM PDT Station ID: [id number]
== END 2022-05-04 13:23 | disposition home or self-care (01) ==
LOC: DI 13:22
PROVIDERS: ATTEND Family Medicine
DX: Z12.2 Encounter for screening for malignant neoplasm of respiratory organs (principal); F17.210 Nicotine dependence, cigarettes, uncomplicated